=== PATIENT | female | born 1965 | race Caucasian/White ===

== ENCOUNTER 2019-12-25 09:41 | Emergency (ER) | payer MEDICAID ==
[~2019-12-25] VITALS: Ht 152.4 cm; Wt 80.6 kg
--- NOTE | 2019-12-25 10:00 | NUR ---
INITIAL PT CONTACT. PT PRESENTS TO THE ED C/O RIGHT WRIST PAIN AND FACIAL ABRASIONS. PT STATES THE SHE "FEEL OUT OF HER TRAILER STEPS 2 DAYS AGO AND LANDED DIRECTLY ON MY FACE". PT STATES SHE LOST HER BALANCE, THEN THIS OCCURED. PT ALSO STATES SHE HAS "A LITTLE BIT OF NECK PAIN". PT SITTING UPRIGHT ON GURNEY WITH SO AT BEDSIDE. ICE PLACED ON INJURED WRIST. PT DENIES ANY NEEDS AT THIS TIME. CALL LIGHT IN REACH, WILL CONTINUE TO MONITOR.
[2019-12-25] MEDS ORDERED: MORPHINE SULFATE 4 MG/ML, 1ML ONE ×2 (10:10→10:54)
[2019-12-25] MEDS ORDERED: ONDANSETRON 2MG/ML, 2ML ONE (10:10)
[2019-12-25] MEDS ORDERED: DIPH,PERTUSS(ACELL),TET VAC/PF 0.5 ML IM-VACC ONE ×2 (10:16→10:30)
[2019-12-25] MEDS: MORPHINE SULFATE 4 MG/ML, 1ML IVPush PRN ×2 (10:17→10:55)
--- NOTE | 2019-12-25 10:20 | NUR ---
PT TO CT
[2019-12-25] MEDS ORDERED: ONDANSETRON 2MG/ML, 2ML IVPush ONE (10:30)
[2019-12-25] MEDS ORDERED: SODIUM CHLORIDE FLUSH 10ML SYR IVF ONE (10:30)
--- NOTE | 2019-12-25 10:58 | NUR ---
PT SITTING UPRIGHT ON GURNEY WATCHING TV, NAD, VSS. PT REPORTS "SLIGHT DECREASE IN PAIN BUT ITS STILL BAD, ID LOVE SOMETHING ELSE FOR THE PAIN". PT MEDICATED PER EMAR. PT DENIES ANY ADDITIONAL NEEDS AT THIS TIME. WILL CONTINUE TO MONITOR. CALL LIGHT WITHIN REACH.
[2019-12-25 12:15] VITALS: BP 117/55
--- NOTE | 2019-12-25 12:40 | NUR ---
PT LEFT ED WITH IV IN PLACE. ATTEMPTED TO CONTACT PT AND PT'S CONTACT ON FILE TO INSTRUCT TO COME BACK TO THE ED, NO ANSWER, LEFT MESSAGE. WILL ATTEMPT TO CONTACT PT AGAIN. DOCTOR OF [employer]IC[employer] AND [employer]IN[employer]CE CONSULTANT AWARE.
--- NOTE | 2019-12-25 18:15 | NUR ---
PT'S STEP FATHER CALLED REGARDING THE IV PT LEFT ED WITH. 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 THE WHOLE THING CAME OUT JUST FINE". PT AND STEP FATHER EDUCATED REGARDING MAINTAINING PRESSURE UNTIL BLEEDING STOPS. VERBALIZED UNDERSTANDING.
== END 2019-12-25 12:17 | disposition home or self-care (01) ==
LOC: ED 10:49
DX: S52.614A Nondisplaced fracture of right ulna styloid process, initial encounter for closed fracture (principal); S52.571A Other intraarticular fracture of lower end of right radius, initial encounter for closed fracture; S23.3XXA Sprain of ligaments of thoracic spine, initial encounter; S16.1XXA Strain of muscle, fascia and tendon at neck level, initial encounter; S00.83XA Contusion of other part of head, initial encounter; S20.212A Contusion of left front wall of thorax, initial encounter; E11.9 Type 2 diabetes mellitus without complications; W10.8XXA Fall (on) (from) other stairs and steps, initial encounter; Y93.89 Activity, other specified; Y92.098 Other place in other non-institutional residence as the place of occurrence of the external cause; Y99.8 Other external cause status
CPT/HCPCS: 29515; 70450; 70486; 71250; 72125; 73110; 73130; 90471; 90715; 96374; 96375; 96376; 99285; J2270; J2405